=== PATIENT | male | born 1940 | race Two or more races ===

== ENCOUNTER 2016-10-14 21:58 | Inpatient (IN) | payer OTHER ==
[~2016-10-14] VITALS: Ht 170.2 cm; Wt 58.2 kg
[2016-10-14 22:34] LABS: Basophils # (auto) 0 uL; CONDITION Y; Eosinophils # (auto) 0 uL; Hematocrit 36.3 % (41.0-53.0); Hemoglobin 12.1 g/dL (13.5-17.5); Lymphocytes # (auto) 0.4 uL; Lymphocytes % (auto) 3.8 % (10.0-50.0); Mean Corpuscular Hemoglobin 28.4 pg (28.0-32.0); Mean Corpuscular Hgb Conc. 33.2 g/dL (32.0-36.0); Mean Corpuscular Volume 85.4 fL (80.0-100.0); Mean Platelet Volume 8.6 fL (7.4-10.4); Monocytes # (auto) 0.8 uL; Monocytes % (auto) 8.2 % (0.0-12.0); Neutrophils # (auto) 8.4 uL; Platelet Count (auto) 235 10^3/uL (140-450); Red Cell Distribution Width 15.2 % (11.6-16.0); White Blood Cell 9.5 10^3/uL (4.4-10.8)
[2016-10-14 22:46] LABS: INR 0.94 (0.9-1.15); Partial Thromboplastin Time 31.4 sec (22.64-33.71); Prothrombin Time 10.2 sec (9.37-12.3)
[2016-10-14 22:52] LABS: Albumin 3.1 g/dL (3.4-5.0); BUN/Creatinine Ratio 14.1; Calcium 8.3 mg/dL (8.5-10.1); Magnesium 1.8 mg/dL (1.6-2.6); Potassium 5.2 mmol/L (3.5-5.1)
[2016-10-14 22:57] LABS: Bilirubin, Total 0.4 mg/dL (0.2-1.0); Total Protein 7.1 g/dL (6.4-8.2)
[2016-10-14 22:58] LABS: Blood 02Sat 72.9 % (96-100); MODE NASAL CANNULA; Sample Type Venous; Venous Blood COHb 0.2 % (0.5-1.5); Venous Blood Gas pH 7.389 (7.34-7.37); Venous Blood MetHb 0.3 % (0.0-1.5); Venous Blood O2Hb 72.5 % (94.0-97.0); Venous Blood PCO2 (T) 24.6 mmHg (44.0-46.0); Venous Blood PO2 37.7 mmHg (38.0-42.0); Venous Blood PO2(T) 37.7 mmHg (38.0-42.0)
[2016-10-14 23:02] LABS: B-Type Natriuretic Peptide 176.87 pg/mL (0-100)
[2016-10-14 23:04] LABS: Temperature: 22.7 C (20.0-25.0)
[2016-10-15 00:08] LABS: Lactic Acid w/Reflex 2.6 mmol/L (0.4-2.0)
[2016-10-15 00:14] LABS: REFLEX LACTIC ACID YES OR NO YES
[2016-10-15] MEDS ORDERED: SODIUM CHLORIDE 0.9% 1,000 ML IV ONE ×4 (00:30→17:30)
[2016-10-15] MEDS ORDERED: metroNIDAZOLE 500MG/100ML 100 ML IV ONE (01:45)
[2016-10-15] MEDS ORDERED: cefTRIAXone 1GM/50ML D5W 50 ML IV ONE (01:45)
[2016-10-15 02:14] LABS: Urine Bilirubin Negative (Negative); Urine Color Yellow (Yellow); Urine Granular Cast FEW /lpf (0); Urine Ketone Negative (Negative); Urine Nitrite Negative (Negative); Urine RBC 1 /hpf (0 - 3); Urine Squamous Epithelial Cell FEW /hpf (<5); Urine Urobilinogen Normal (Negative); Urine pH 5.5 (5.0-8.0)
[2016-10-15 02:15] LABS: Urine Blood 1+ /uL (Negative); Urine Glucose 1+ mg/dL (Normal)
[2016-10-15] MEDS ORDERED: cloNIDine HCL 0.1 MG TAB PO ONE (02:30)
[2016-10-15] MEDS ORDERED: SODIUM CHLORIDE 0.9% 1,000 ML IV SCH ×2 (05:36→22:00)
[2016-10-15] MEDS ORDERED: ONDANSETRON HCL 4 MG/2 ML VIAL IV PRN (05:45)
[2016-10-15] MEDS ORDERED: ACETAMINOPHEN 325 MG TAB PO PRN (05:45)
[2016-10-15] MEDS ORDERED: MORPHINE SULF INJ 2 MG/ML SYRINGE 1ML IV PRN (05:45)
[2016-10-15] MEDS ORDERED: DEXTROSE (50%) 50ML SYRG IV PRN (05:45)
[2016-10-15] MEDS ORDERED: TEMAZEPAM 15 MG CAP PO PRN (05:45)
[2016-10-15] MEDS ORDERED: NITROGLYCERIN 0.4 MG SL TAB SL PRN (05:45)
[2016-10-15] MEDS ORDERED: HYDROcodone-ACET 5/325MG TAB PO PRN (05:45)
[2016-10-15] MEDS: ACCU-CHEK COMFORT CURVE STRIP VI SCH ×4 (05:59→23:38)
[2016-10-15 06:02] LABS: Amylase 95 U/L (25-115)
[2016-10-15] MEDS: InsuLIN REG 1unit/0.01ml Soln (100units/ml) SC SCH ×4 (06:07→23:38)
[2016-10-15] MEDS: LEVOTHYROXINE SODIUM 50 MCG TAB PO SCH (06:54)
[2016-10-15 09:00] VITALS: BP 109/55
[2016-10-15] MEDS: cefTRIAXone 1GM/50ML D5W 50 ML IV SCH (09:21)
[2016-10-15 09:50] VITALS: BP 109/55
[2016-10-15] MEDS ORDERED: metroNIDAZOLE 500MG/100ML 100 ML IV SCH (10:00)
[2016-10-15] MEDS ORDERED: FAMOTIDINE 20 MG TAB PO SCH (10:00)
[2016-10-15] MEDS ORDERED: BENAZEPRIL HCL 10 MG TAB PO SCH ×2 (10:00)
[2016-10-15] MEDS: ENOXAPARIN SOD 30 MG/0.3 ML SYRINGE SC SCH (11:07)
[2016-10-15] MEDS: CLOPIDOGREL BISULFATE 75 MG TAB PO SCH (11:07)
[2016-10-15] MEDS: FAMOTIDINE 20 MG TAB PO SCH (11:07)
[2016-10-15] MEDS: metroNIDAZOLE 500MG/100ML 100 ML IV SCH ×2 (12:21→19:54)
[2016-10-15] MEDS: Boost Glucose Control 8 Ounces PO SCH ×2 (12:22→18:29)
[2016-10-15 12:57] VITALS: BP_SYST 132; BP_SYST 142; BP_DIAS 55; BP_DIAS 58
[2016-10-15] MEDS ORDERED: BENA20TA14 PO (14:21)
[2016-10-15] MEDS ORDERED: CLOP75TA28 PO (14:21)
[2016-10-15] MEDS: SODIUM CHLORIDE 0.9% 1,000 ML IV SCH (16:21)
[2016-10-15 17:23] VITALS: BP 146/56
[2016-10-15 19:17] LABS: BUN/Creatinine Ratio 15.2; Calcium 7.7 mg/dL (8.5-10.1); Potassium 4.3 mmol/L (3.5-5.1)
[2016-10-15 22:13] VITALS: BP 138/54
[2016-10-16] VITALS (7 sets, daily range): BP systolic 141–163; BP diastolic 60–65
[2016-10-16] MEDS: metroNIDAZOLE 500MG/100ML 100 ML IV SCH ×3 (03:50→21:36)
[2016-10-16 05:20] LABS: Basophils # (auto) 0 uL; Basophils % (auto) 0.3 % (0.0-2.0); CONDITION Y; Eosinophils # (auto) 0 uL; Hematocrit 27.9 % (41.0-53.0); Hemoglobin 9.1 g/dL (13.5-17.5); Lymphocytes # (auto) 1.1 uL; Lymphocytes % (auto) 14.6 % (10.0-50.0); Mean Corpuscular Hemoglobin 28.1 pg (28.0-32.0); Mean Corpuscular Hgb Conc. 32.8 g/dL (32.0-36.0); Mean Corpuscular Volume 85.8 fL (80.0-100.0); Monocytes # (auto) 0.5 uL; Monocytes % (auto) 6.7 % (0.0-12.0); Neutrophils # (auto) 5.9 uL; Neutrophils % (auto) 78.4 % (37.0-80.0); Platelet Count (auto) 195 10^3/uL (140-450); Red Cell Distribution Width 15.2 % (11.6-16.0); White Blood Cell 7.5 10^3/uL (4.4-10.8)
[2016-10-16 05:47] LABS: Albumin 2.2 g/dL (3.4-5.0); BUN/Creatinine Ratio 15.3; Bilirubin, Total 0.3 mg/dL (0.2-1.0); Calcium 7.4 mg/dL (8.5-10.1); Phosphorus 2.5 mg/dL (2.5-4.90); Potassium 4.2 mmol/L (3.5-5.1); Total Protein 5.3 g/dL (6.4-8.2); Uric Acid 8.4 mg/dL (3.5-7.2)
[2016-10-16] MEDS: InsuLIN REG 1unit/0.01ml Soln (100units/ml) SC SCH ×3 (06:00→18:00)
[2016-10-16] MEDS: ACCU-CHEK COMFORT CURVE STRIP VI SCH ×3 (06:16→18:00)
[2016-10-16] MEDS: LEVOTHYROXINE SODIUM 50 MCG TAB PO SCH (06:17)
[2016-10-16] MEDS: Boost Glucose Control 8 Ounces PO SCH ×3 (08:17→18:00)
[2016-10-16] MEDS: FAMOTIDINE 20 MG TAB PO SCH (09:50)
[2016-10-16] MEDS: cefTRIAXone 1GM/50ML D5W 50 ML IV SCH (09:50)
[2016-10-16] MEDS: ENOXAPARIN SOD 30 MG/0.3 ML SYRINGE SC SCH (09:50)
[2016-10-16] MEDS: CLOPIDOGREL BISULFATE 75 MG TAB PO SCH (09:50)
[2016-10-16] MEDS ORDERED: GASTROGRAFIN 30 ML SOL ONE (12:21)
[2016-10-16] MEDS ORDERED: INSUINJ37 SUBCUT (14:57)
[2016-10-16] MEDS: SODIUM CHLORIDE 0.9% 1,000 ML IV SCH (15:31)
[2016-10-17] VITALS (10 sets, daily range): BP systolic 108–183; BP diastolic 54–80
[2016-10-17] MEDS: InsuLIN REG 1unit/0.01ml Soln (100units/ml) SC SCH ×4 (00:07→18:00)
[2016-10-17] MEDS: ACCU-CHEK COMFORT CURVE STRIP VI SCH ×4 (00:07→18:00)
[2016-10-17] MEDS: cloNIDine HCL 0.1 MG TAB PO PRN (03:30)
[2016-10-17] MEDS: metroNIDAZOLE 500MG/100ML 100 ML IV SCH (05:03)
[2016-10-17] MEDS ORDERED: hydrALAZINE HCL 20 MG/ML VL IV ONE (06:15)
[2016-10-17 06:35] LABS: Calcium 7.3 mg/dL (8.5-10.1); Potassium 3.8 mmol/L (3.5-5.1)
[2016-10-17 06:37] LABS: BUN/Creatinine Ratio 14.9
[2016-10-17] MEDS: LEVOTHYROXINE SODIUM 50 MCG TAB PO SCH (06:39)
[2016-10-17] MEDS: Boost Glucose Control 8 Ounces PO SCH ×3 (08:00→18:00)
[2016-10-17] MEDS: SOD CHL 0.45% 1,000 ML IV SCH ×2 (09:30→22:52)
[2016-10-17] MEDS: FREE WATER PO SCH ×4 (10:04→21:51)
[2016-10-17] MEDS: FAMOTIDINE 20 MG TAB PO SCH (10:04)
[2016-10-17] MEDS: CLOPIDOGREL BISULFATE 75 MG TAB PO SCH (10:04)
[2016-10-17] MEDS: ENOXAPARIN SOD 30 MG/0.3 ML SYRINGE SC SCH (10:05)
[2016-10-17] MEDS: CHOLECALCIFEROL (VITD3) 1,000 UNIT TAB PO SCH (10:05)
[2016-10-17] MEDS: amLODIPine BESYLATE 5 MG TAB PO SCH (10:07)
[2016-10-17] MEDS ORDERED: CHOL1000T PO (12:18)
[2016-10-17] MEDS ORDERED: AML5T PO (12:18)
[2016-10-17] MEDS ORDERED: metroNIDAZOLE 500 MG TAB PO SCH (14:00)
[2016-10-17] MEDS: metroNIDAZOLE 500 MG TAB PO SCH ×2 (14:09→21:51)
[2016-10-18] VITALS (9 sets, daily range): BP systolic 139–176; BP diastolic 68–82
[2016-10-18] MEDS: InsuLIN REG 1unit/0.01ml Soln (100units/ml) SC SCH ×5 (00:01→23:50)
[2016-10-18] MEDS: FREE WATER PO SCH ×3 (02:18→10:02)
[2016-10-18] MEDS: metroNIDAZOLE 500 MG TAB PO SCH ×3 (05:59→21:38)
[2016-10-18] MEDS: ACCU-CHEK COMFORT CURVE STRIP VI SCH ×5 (05:59→23:50)
[2016-10-18] MEDS: Boost Glucose Control 8 Ounces PO SCH ×3 (08:00→17:52)
[2016-10-18] MEDS: FAMOTIDINE 20 MG TAB PO SCH (09:59)
[2016-10-18] MEDS: CLOPIDOGREL BISULFATE 75 MG TAB PO SCH (10:00)
[2016-10-18] MEDS: CHOLECALCIFEROL (VITD3) 1,000 UNIT TAB PO SCH (10:00)
[2016-10-18] MEDS: amLODIPine BESYLATE 5 MG TAB PO SCH (10:01)
[2016-10-18] MEDS: ENOXAPARIN SOD 30 MG/0.3 ML SYRINGE SC SCH (10:01)
[2016-10-18] MEDS: cloNIDine HCL 0.1 MG TAB PO PRN (12:07)
[2016-10-18] MEDS: SODIUM BICARBONATE 50ML VIAL 50 ML in SOD CHL 0.45% 1,000 ML IV SCH (12:10)
[2016-10-18] MEDS ORDERED: ALBUTEROL SULF 2.5 MG/0.5ML(0.5%) NEB SOLN NEB PRN (13:00)
[2016-10-18] MEDS ORDERED: methylPREDNISolone SOD SUCC 40 MG/ML VL IV ONE (13:00)
[2016-10-18] MEDS: methylPREDNISolone SOD SUCC 40 MG/ML VL IV SCH ×2 (14:00→21:37)
[2016-10-18] MEDS: LEVOFLOXACIN 500MG 100 ML IV SCH (14:20)
[2016-10-18] MEDS: IPRATROPIUM BROM 0.5 MG/2.5ML INH SOL NEB SCH ×2 (18:51→23:34)
[2016-10-19 04:50] VITALS: BP 146/69
[2016-10-19 05:32] LABS: Basophils # (auto) 0 uL; Basophils % (auto) 0.1 % (0.0-2.0); CONDITION Y; Eosinophils # (auto) 0 uL; Eosinophils % (auto) 0.1 % (0.0-7.0); Hematocrit 30.3 % (41.0-53.0); Hemoglobin 10.1 g/dL (13.5-17.5); Lymphocytes # (auto) 0.3 uL; Lymphocytes % (auto) 7.8 % (10.0-50.0); Mean Corpuscular Hemoglobin 28.2 pg (28.0-32.0); Mean Corpuscular Hgb Conc. 33.5 g/dL (32.0-36.0); Mean Corpuscular Volume 84.3 fL (80.0-100.0); Mean Platelet Volume 8.3 fL (7.4-10.4); Monocytes # (auto) 0.1 uL; Monocytes % (auto) 1.5 % (0.0-12.0); Neutrophils # (auto) 3.7 uL; Neutrophils % (auto) 90.5 % (37.0-80.0); Platelet Count (auto) 287 10^3/uL (140-450); Red Cell Distribution Width 15.1 % (11.6-16.0); White Blood Cell 4.1 10^3/uL (4.4-10.8)
[2016-10-19 05:53] LABS: Albumin 2.3 g/dL (3.4-5.0); BUN/Creatinine Ratio 13.1; Calcium 7.6 mg/dL (8.5-10.1); Potassium 4.3 mmol/L (3.5-5.1)
[2016-10-19] MEDS: methylPREDNISolone SOD SUCC 40 MG/ML VL IV SCH ×3 (05:54→22:02)
[2016-10-19] MEDS: metroNIDAZOLE 500 MG TAB PO SCH ×3 (05:54→22:04)
[2016-10-19] MEDS: ACCU-CHEK COMFORT CURVE STRIP VI SCH ×4 (05:54→23:41)
[2016-10-19 05:55] LABS: Bilirubin, Total 0.2 mg/dL (0.2-1.0); Total Protein 5.7 g/dL (6.4-8.2)
[2016-10-19] MEDS: InsuLIN REG 1unit/0.01ml Soln (100units/ml) SC SCH ×4 (05:56→23:42)
[2016-10-19] MEDS: IPRATROPIUM BROM 0.5 MG/2.5ML INH SOL NEB SCH ×3 (05:59→19:47)
[2016-10-19] MEDS: SODIUM BICARBONATE 50ML VIAL 50 ML in SOD CHL 0.45% 1,000 ML IV SCH ×2 (06:25→08:45)
[2016-10-19] MEDS: Boost Glucose Control 8 Ounces PO SCH ×3 (08:00→18:07)
[2016-10-19] MEDS: ENOXAPARIN SOD 30 MG/0.3 ML SYRINGE SC SCH (08:39)
[2016-10-19] MEDS: amLODIPine BESYLATE 5 MG TAB PO SCH (08:40)
[2016-10-19] MEDS: FAMOTIDINE 20 MG TAB PO SCH (08:40)
[2016-10-19] MEDS: CLOPIDOGREL BISULFATE 75 MG TAB PO SCH (08:40)
[2016-10-19] MEDS: CHOLECALCIFEROL (VITD3) 1,000 UNIT TAB PO SCH (08:41)
[2016-10-19 09:54] VITALS: BP 160/70
[2016-10-19 12:12] VITALS: BP 134/71
[2016-10-19] MEDS: GLIMEPIRIDE 2 MG TAB PO SCH (12:59)
[2016-10-19 16:45] VITALS: BP 155/67
[2016-10-19 20:00] VITALS: BP 166/72
[2016-10-19] MEDS: cloNIDine HCL 0.1 MG TAB PO PRN (20:40)
[2016-10-19 20:44] VITALS: BP 166/72
[2016-10-20] MEDS: IPRATROPIUM BROM 0.5 MG/2.5ML INH SOL NEB SCH ×3 (00:32→11:22)
[2016-10-20 04:48] VITALS: BP 140/52
[2016-10-20] MEDS: metroNIDAZOLE 500 MG TAB PO SCH ×2 (05:47→13:45)
[2016-10-20] MEDS: methylPREDNISolone SOD SUCC 40 MG/ML VL IV SCH ×2 (05:47→13:45)
[2016-10-20] MEDS: ACCU-CHEK COMFORT CURVE STRIP VI SCH ×2 (05:47→11:06)
[2016-10-20] MEDS: InsuLIN REG 1unit/0.01ml Soln (100units/ml) SC SCH ×2 (05:48→11:06)
[2016-10-20 06:14] LABS: Basophils # (auto) 0 uL; CONDITION Y; Eosinophils # (auto) 0 uL; Hematocrit 29.4 % (41.0-53.0); Hemoglobin 9.6 g/dL (13.5-17.5); Lymphocytes # (auto) 0.6 uL; Lymphocytes % (auto) 5.8 % (10.0-50.0); Mean Corpuscular Hemoglobin 28.1 pg (28.0-32.0); Mean Corpuscular Hgb Conc. 32.7 g/dL (32.0-36.0); Mean Corpuscular Volume 85.9 fL (80.0-100.0); Mean Platelet Volume 8.3 fL (7.4-10.4); Monocytes # (auto) 0.4 uL; Monocytes % (auto) 3.6 % (0.0-12.0); Neutrophils # (auto) 9.7 uL; Neutrophils % (auto) 90.6 % (37.0-80.0); Platelet Count (auto) 333 10^3/uL (140-450); Red Cell Distribution Width 14.8 % (11.6-16.0); White Blood Cell 10.7 10^3/uL (4.4-10.8)
[2016-10-20 06:36] LABS: Calcium 7.9 mg/dL (8.5-10.1); Potassium 4.6 mmol/L (3.5-5.1)
[2016-10-20 06:39] LABS: BUN/Creatinine Ratio 15.5
[2016-10-20] MEDS: GLIMEPIRIDE 2 MG TAB PO SCH (06:48)
[2016-10-20 08:00] VITALS: BP 151/72
[2016-10-20] MEDS ORDERED: GLI2T PO (08:31)
[2016-10-20] MEDS ORDERED: ALBUAER3 IN (08:48)
[2016-10-20] MEDS ORDERED: CLO01T PO (08:48)
[2016-10-20 09:00] VITALS: BP 141/71
[2016-10-20] MEDS ORDERED: FER325T PO (09:02)
[2016-10-20] MEDS ORDERED: LEVO-28 PO (09:02)
[2016-10-20] MEDS: ENOXAPARIN SOD 30 MG/0.3 ML SYRINGE SC SCH (09:38)
[2016-10-20] MEDS: FAMOTIDINE 20 MG TAB PO SCH (09:39)
[2016-10-20] MEDS: CLOPIDOGREL BISULFATE 75 MG TAB PO SCH (09:39)
[2016-10-20] MEDS: amLODIPine BESYLATE 5 MG TAB PO SCH (09:39)
[2016-10-20] MEDS: SODIUM BICARBONATE 50ML VIAL 50 ML in SOD CHL 0.45% 1,000 ML IV SCH (09:39)
[2016-10-20] MEDS: CHOLECALCIFEROL (VITD3) 1,000 UNIT TAB PO SCH (09:39)
[2016-10-20] MEDS: Boost Glucose Control 8 Ounces PO SCH ×2 (09:39→12:08)
[2016-10-20 10:13] VITALS: BP 141/71
[2016-10-20] MEDS: LEVOFLOXACIN 500MG 100 ML IV SCH (12:28)
== END 2016-10-20 14:26 | disposition home or self-care (01) | DRG 871 ==
LOC: ER 22:05 → TELE 22:06 → TELE-EAST 10-15 08:20
PROVIDERS: ADMIT Internal Medicine; ATTEND Internal Medicine
DX: A41.9 Sepsis, unspecified organism (principal); G92 Toxic encephalopathy; N17.0 Acute kidney failure with tubular necrosis; E43 Unspecified severe protein-calorie malnutrition; I63.9 Cerebral infarction, unspecified; N18.4 Chronic kidney disease, stage 4 (severe); J44.1 Chronic obstructive pulmonary disease with (acute) exacerbation; J44.0 Chronic obstructive pulmonary disease with (acute) lower respiratory infection; I12.9 Hypertensive chronic kidney disease with stage 1 through stage 4 chronic kidney disease, or unspecified chronic kidney disease; Z66 Do not resuscitate; I25.10 Atherosclerotic heart disease of native coronary artery without angina pectoris; I70.0 Atherosclerosis of aorta; K52.9 Noninfective gastroenteritis and colitis, unspecified; N18.3 Chronic kidney disease, stage 3 (moderate); D73.89 Other diseases of spleen; D50.9 Iron deficiency anemia, unspecified; E03.9 Hypothyroidism, unspecified; E55.9 Vitamin D deficiency, unspecified; K57.90 Diverticulosis of intestine, part unspecified, without perforation or abscess without bleeding; E11.21 Type 2 diabetes mellitus with diabetic nephropathy; F03.90 Unspecified dementia, unspecified severity, without behavioral disturbance, psychotic disturbance, mood disturbance, and anxiety; D63.8 Anemia in other chronic diseases classified elsewhere; R19.00 Intra-abdominal and pelvic swelling, mass and lump, unspecified site; E86.0 Dehydration; E11.22 Type 2 diabetes mellitus with diabetic chronic kidney disease; N05.9 Unspecified nephritic syndrome with unspecified morphologic changes; E87.5 Hyperkalemia; I25.2 Old myocardial infarction; Z82.3 Family history of stroke; Z68.20 Body mass index [BMI] 20.0-20.9, adult; Z83.3 Family history of diabetes mellitus; Z82.49 Family history of ischemic heart disease and other diseases of the circulatory system; Z86.73 Personal history of transient ischemic attack (TIA), and cerebral infarction without residual deficits; Z95.5 Presence of coronary angioplasty implant and graft; Z88.0 Allergy status to penicillin; Z88.7 Allergy status to serum and vaccine; Z71.89 Other specified counseling
CPT/HCPCS: 36415; 36600; 70450; 71010; 74176; 76775; 80048; 80053; 81001; 82150; 82270; 82306; 82570; 82805; 82962; 83036; 83540; 83550; 83605; 83690; 83735; 83880; 84100; 84156; 84300; 84443; 84484; 84550; 85025; 85610; 85730; 87040; 87045; 87493; 87899; 92610; 93005; 94640; 96361; 96365; 96368; J0696; J1815; J1956; J3490